=== PATIENT | male | born 1985 | race Caucasian/White ===

== ENCOUNTER 2016-11-03 10:34 | Emergency (ER) | payer OTHER ==
--- NOTE | 2016-11-05 13:20 | ER ---
ADMIT: 11/03/2016 RM/LOC: ER [facility] MR#: [id number] [id number] RAYNA TINSLEY [address] [place] [facility] [place] [address] Emergency Room Report SEX: M AGE: 31 : 1985 DATE: 11/03/2016 CHIEF COMPLAINT: Today is vomiting. HISTORY OF PRESENT ILLNESS: This is a 31-year-old male, who presents to the ER via EMS [facility] that [facility] was dehydrated and listless with significant nausea and vomiting. They were unable to get an IV, sent him over here for further evaluation and management. Visiting with the patient today, he states he has had some nasal congestion and drainage for the past 3 days. He has sick contacts at home, states who is improving. Admits to productive cough and significant nausea and vomiting. PAST MEDICAL HISTORY: PTSD, depression, and kidney stone. Does smoke half a pack per day. COURSE IN THE EMERGENCY ROOM: The patient was seen and examined. VITAL SIGNS: Blood pressure 165/103, heart rate 89, respirations 12, temp 98.2, and 96% on room air. GENERAL: He is in no acute distress. He is alert. HEENT: Head is normocephalic and atraumatic. He does have some mucosal edema and rhinorrhea. Some pharyngeal erythema. No exudates. He does appear to be a bit dry. NECK: Soft and supple. No lymphadenopathy. RESPIRATORY: No respiratory distress. No wheezes or rales. HEART: Regular. ABDOMEN: Soft and nontender. SKIN: Warm and dry. EXTREMITIES: Nontender. NEUROLOGIC: Alert and oriented. LABORATORY DATA: Did get labs on him today; white count 8.7, hemoglobin , hematocrit 44.4, and platelets 223. Chemistry; sodium 140, potassium 4.0, BUN 8, glucose 99, creatinine 1.2. AST 50, ALT 87. Did give him a liter of bolus of normal saline, Zofran 4 mg IV as well as Toradol 15 mg IV. He states this improved his nausea, still complains of some headache primarily in the left side. IMPRESSION: ADMIT: 11/03/2016 RM/LOC: ER [facility] MR#: [id number] [address] RAYNA TINSLEY [address] [place] [address] Emergency Room Report SEX: M AGE: 31 : 1985 1. Rhinosinusitis. 2. Nausea and vomiting. DISPOSITION: The patient was provided a script for Zofran 4 mg ODT 1 tab sublingually every 8 hours as needed for nausea #8. Encouraged him to continue to increase his fluids. Continue all his home medications. Return with any worsening signs or symptoms. [facility] as they need to start antibiotics at this time; however, given the swelling has been going on for 3 days, I did tell him to continue to treat this symptomatically as this is likely viral. Tylenol or Motrin as needed for pain. Return home and rest. Questions sought and answered to the best of my ability and to the patient's satisfaction. Discharged in stable condition. JOSEPH Elizabeth / Hieu Schmitz MD / janethl JOB #: [id number] CC: Hieu Schmitz MD, Attending Physician [facility] Physician, Family Physician
== END 2016-11-03 14:00 | disposition home or self-care (01) ==
LOC: ER 10:34
DX: J32.9 Chronic sinusitis, unspecified (principal); R11.2 Nausea with vomiting, unspecified; F32.9 Major depressive disorder, single episode, unspecified; F17.210 Nicotine dependence, cigarettes, uncomplicated